=== PATIENT | female | born 1975 | race Caucasian/White ===

== ENCOUNTER 2018-05-01 08:21 | Emergency (ER) | payer OTHER ==
[~2018-05-01] VITALS: Ht 162.6 cm; Wt 94.3 kg
--- NOTE | 2018-05-01 08:22 | NUR ---
PT BIBA BLS TO ER BED 10
[2018-05-01 08:23] VITALS: BP 143/86
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
[2018-05-01] MEDS ORDERED: TETRACAINE HCL/PF 0.5% OPTH 4 ML BTL OP ONE (08:50)
[2018-05-01 09:17] VITALS: BP 134/72
--- NOTE | 2018-05-01 09:17 | NUR ---
Patient discharged with v/s stable. Written and verbal after care instructions given and explained. Patient verbalized understanding. Ambulatory with steady gait. All questions addressed prior to discharge. Advised to follow up with PMD.
== END 2018-05-01 09:17 | disposition home or self-care (01) ==
LOC: MED 08:21
DX: H11.89 Other specified disorders of conjunctiva (principal); E07.9 Disorder of thyroid, unspecified; F41.9 Anxiety disorder, unspecified
CPT/HCPCS: 99282; 99283